=== PATIENT | male | born 1970 | race Caucasian/White ===

== ENCOUNTER 2017-04-26 18:14 | Emergency (ER) | payer BC ==
[~2017-04-26 18:14] MED LIST: GENTAMICIN OPTH OINT 0.3% 3.5 GM TUBE OPHTH ONE; TETRACAINE HCL 0.5% 4 ML BTTL OPHTH ONE
--- NOTE | 2017-04-26 18:44 | ED.PDOC ---
History of Present Illness - General Chief Complaint: Eye Problems Time Seen by Provider: 04/26/17 18:22 Source: patient Exam Limitations: no limitations - History of Present Illness Initial Comments: The patient is a 47-year-old male presenting to the emergency room secondary to pain with his left eye. Apparently they were driving pipe fence posts earlier this morning when he believes a piece of metal from the pipe came off and hit him in the left eye. He reports mildly blurry vision. He was unable to see any fragment in the mirror. This happened approximately 8 hours prior to arrival. He presented secondary to persistent discomfort. He does not work contacts. No previous trauma to that eye according to him. Timing/Duration: 4-6 hours Severity: moderate Improving Factors: nothing Worsening Factors: nothing Associated Symptoms: denies symptoms Review of Systems - Review of Systems Constitutional: States: no symptoms reported EENTM: States: eye pain, blurred vision, tearing Respiratory: States: no symptoms reported Cardiology: States: no symptoms reported Gastrointestinal/Abdominal: States: no symptoms reported Genitourinary: States: no symptoms reported Musculoskeletal: States: no symptoms reported Skin: States: no symptoms reported Neurological: States: no symptoms reported Endocrine: States: no symptoms reported All other Systems: No Change from Baseline Physical Exam - Physical Exam General Appearance: Alert, Anxious, No apparent distress Eye Exam: right normal, left other - see note Ears, Nose, Throat: normal ENT inspection, normal pharynx Neck: full range of motion, supple, normal inspection Respiratory: no respiratory distress, no accessory muscle use Cardiovascular/Chest: normal peripheral pulses, no edema, other - regular rate Peripheral Pulses: radial,right: 2+, radial,left: 2+ Rectal Exam: deferred Extremity: normal range of motion, no pedal edema, normal capillary refill 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 No residual metal fragment is present. The patient is to use 1 cm of the gentamicin ointment 3 times daily for the next 3-4 days. He can also use Systane eyedrops as needed to keep the eye well hydrated. He should use safety goggles at least for the next week when working to help prevent drying of the eye in the wind. ER warnings were given for any worsening. He can follow up with his primary care doctor early next week if he feels like it is not getting better. Ibuprofen can be used for discomfort as well. Procedures examination with fluoresceine: Risk and benefits were explained and patient agreed to proceed. Tetracaine was used to apply the dye. Examination with Wood's lamp was performed. 1 cm corneal abrasion was seen at 12:00 in the left eye. No foreign body is present. No perforation of the globe. Iris function is normal. There is mild surrounding conjunctival injection. Departure - Departure Clinical Impression: Corneal abrasion Qualifiers: Encounter type: initial encounter Laterality: left Qualified Code(s): S05.02XA - Injury of conjunctiva and corneal abrasion without foreign body, left eye, initial encounter Disposition: Discharge to Home or Self Care Departure Forms: ED Discharge - Pt. Copy, Patient Portal Self Enrollment Instructions: DI for Corneal Abrasion Diet: regular diet Activity: increase activity as tolerated Referrals: Jesús Davey MD [Primary Care Provider] - 1-2 Weeks Additional Instructions: the patient is a 47-year-old male presenting to the emergency room secondary to what appears to be a small corneal abrasion less than 1 mm in diameter of the left cornea at approximately 12:00. No residual metal fragment is present. The patient is to use 1 cm of the gentamicin ointment 3 times daily for the next 3-4 days. He can also use Systane eyedrops as needed to keep the eye well hydrated. He should use safety goggles at least for the next week when working to help prevent drying of the eye in the wind. ER warnings were given for any worsening. He can follow up with his primary care doctor early next week if he feels like it is not getting better. Ibuprofen can be used for discomfort as well.
[2017-04-26 18:58] VITALS: BP 142/83; TEMP 98.3; O2SAT 94
== END 2017-04-26 18:56 | disposition home or self-care (01) ==
LOC: ER 18:14
DX: S05.02XA Injury of conjunctiva and corneal abrasion without foreign body, left eye, initial encounter (principal); X58.XXXA Exposure to other specified factors, initial encounter; Y99.0 Civilian activity done for income or pay

== ENCOUNTER → 2017-06-13 | Outpatient (CLI) | payer BC | END | disposition home or self-care (01) | LOC: GMA 10:31 | PROVIDERS: ATTEND Nurse Practitioner Acute Care | DX: R07.2 Precordial pain (principal) ==

== ENCOUNTER → 2017-11-01 | Outpatient (CLI) | payer BC | END | disposition home or self-care (01) | LOC: GMAM 09:42 | PROVIDERS: ATTEND Family Medicine | DX: Z00.00 Encounter for general adult medical examination without abnormal findings (principal) ==

== ENCOUNTER → 2018-01-03 | Outpatient (CLI) | payer BC | LOC: GMAM 12:29 | PROVIDERS: ATTEND Family Medicine | DX: R94.5 Abnormal results of liver function studies (principal); E29.1 Testicular hypofunction ==

== ENCOUNTER → 2018-01-08 | Outpatient (CLI) | payer BC ==
--- NOTE | 2018-01-09 08:32 | US ---
EXAM DESCRIPTION: Liver: ULTRASOUND. CLINICAL HISTORY: ELEVATED LFT'S COMPARISON: None. TECHNIQUE: Transabdominal scannin-dimensional and Doppler modes. FINDINGS: Gallbladder: is normal in size, shape, and echogenicity, with no intraluminal stones or sludge. No fluid around the gallbladder. No wall thickening. 2.9 mm. Nontender with transducer pressure. Common bile duct: caliber is 5.8 mm which is within normal limits. Liver: demonstrates increased echogenicity; contour of the liver capsule is smooth where seen. No fluid around the liver. Intrahepatic biliary ducts Normal hepatopedal flow in the bill hepatis. Long axis right lobe is 16 cm. Pancreas: Increased echogenicity, normal size. Duct not seen. Proximal abdominal aorta: Not measured. IVC: visualized and normal caliber. Right kidney: long axis measures 11.2 cm. Normal cortical Echogenicity. No hydronephrosis. 2.7 x 2.1 cm anechoic cyst with thin pfeiffer mid kidney. IMPRESSION: 1. Steatosis of the liver with normal ducts smooth capsule no ascites. Not enlarged. This can be related to obesity and a variety of metabolic and toxic conditions. 2. Normal gallbladder and common bile duct. 3. Fatty pancreas. Normal caliber IVC. Right kidney unremarkable. Electronically signed by: Angel Nichols MD 01/09/2018 8:31 AM [facility] [facility]
== END ==
LOC: US 08:03
PROVIDERS: ATTEND Family Medicine
DX: K21.9 Gastro-esophageal reflux disease without esophagitis (principal); R94.5 Abnormal results of liver function studies; R97.20 Elevated prostate specific antigen [PSA]; J45.20 Mild intermittent asthma, uncomplicated; F41.9 Anxiety disorder, unspecified; K76.0 Fatty (change of) liver, not elsewhere classified

== ENCOUNTER → 2018-01-13 | Outpatient (CLI) | payer BC | LOC: GMAM 11:28 | PROVIDERS: ATTEND Family Medicine | DX: K76.0 Fatty (change of) liver, not elsewhere classified (principal) ==

== ENCOUNTER → 2018-07-07 | Outpatient (CLI) | payer BC | LOC: GMAM 11:45 | PROVIDERS: ATTEND Family Medicine | DX: R97.20 Elevated prostate specific antigen [PSA] (principal) ==

== ENCOUNTER → 2019-08-04 | Outpatient (CLI) | payer BC | LOC: GMAM 14:40 | PROVIDERS: ATTEND Family Medicine | DX: Z00.00 Encounter for general adult medical examination without abnormal findings (principal) ==

== ENCOUNTER → 2019-10-21 | Outpatient (CLI) | payer BC | END | disposition home or self-care (01) | LOC: GMAM 10:38 | PROVIDERS: ATTEND Family Medicine | DX: E29.1 Testicular hypofunction (principal) ==

== ENCOUNTER → 2020-04-28 | Outpatient (CLI) | payer BC | LOC: GMAM 12:11 | PROVIDERS: ATTEND Family Medicine | DX: E29.1 Testicular hypofunction (principal); E78.00 Pure hypercholesterolemia, unspecified ==